=== PATIENT | female | born 1950 | race Caucasian/White ===

== ENCOUNTER → 2021-03-19 15:34 | Outpatient (BNVA) | payer MEDICARE, SELFPAY | PROVIDERS: Family Provider Family Medicine; Visit Provider Podiatrist Foot & Ankle Surgery | DX: M25.571 Pain in right ankle and joints of right foot (principal) | CPT/HCPCS: 73610 ==

== ENCOUNTER → 2022-01-11 08:06 | Outpatient (BNVA) | payer MEDICARE, SELFPAY | PROVIDERS: Family Provider Family Medicine; Visit Provider Orthopaedic Surgery | DX: M17.12 Unilateral primary osteoarthritis, left knee (principal) | CPT/HCPCS: 73560; 73565; 99202 ==

== ENCOUNTER → 2022-02-12 14:33 | Outpatient (BNVA) | payer MEDICARE, SELFPAY | PROVIDERS: Family Provider Family Medicine; Visit Provider Orthopaedic Surgery | DX: M17.12 Unilateral primary osteoarthritis, left knee (principal) | CPT/HCPCS: 99213 ==

== ENCOUNTER 2022-04-05 08:40 | Outpatient (CLI) | payer MEDICARE, OTHER, SELFPAY | END 2022-04-05 08:41 | disposition home or self-care (01) | LOC: RT 04-15 08:23 | PROVIDERS: PCP Family Medicine; Visit Provider Orthopaedic Surgery | DX: Z13.6 Encounter for screening for cardiovascular disorders (principal) | CPT/HCPCS: 93005 ==

== ENCOUNTER 2022-04-05 13:36 | Outpatient (CLI) | payer MEDICARE, OTHER, SELFPAY ==
--- NOTE | 2022-04-05 | CT_ITS ---
WS: [id number] CT LEFT knee, noncontrast HISTORY: PRE-OP MAPPING TECHNIQUE: Protocol for [employer] total knee replacement has been obtained. This includes axial imaging th rough the LEFT hip, LEFT knee and LEFT ankle. DLP: 862.90 mGy.cm COMPARISON: None available. Pelvis: Symmetric bilaterally. No significant joint space narrowing. LEFT knee: Moderate narrowing of the knee joint with osteophytic ridging. Small joint effusion. Lewis 's cyst. LEFT ankle: Negative. CT/CT knee LT [employer] IMPRESSION: CT imaging provided for [employer] robotic total knee replacement.
== END 2022-04-05 13:37 | disposition home or self-care (01) ==
LOC: RAD 13:37
PROVIDERS: PCP Family Medicine; Visit Provider Orthopaedic Surgery
DX: Z01.818 Encounter for other preprocedural examination (principal); M25.462 Effusion, left knee; M71.22 Synovial cyst of popliteal space [Baker], left knee; M25.762 Osteophyte, left knee
CPT/HCPCS: 73700

== ENCOUNTER 2022-04-15 12:35 | Observation (INO) | payer MEDICARE, OTHER, SELFPAY ==
--- NOTE | 2022-04-05 08:40 | ECG_ITS ---
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 Measurements Intervals [place] Rate: 75 P: 47 MI: 189 QRS: 57 QRSD: 92 T: 69 QT: 366 QTc: 410 Interpretive Statements SINUS RHYTHM Compared to ECG 02/12/2018 13:15:37 Myocardial infarct finding no longer present Electronically Signed On 04-05-2022 14:41:49 MOBILE QA TESTER by Aristeo Cash M.D. [email or web address] / [id number]
[2022-04-05 09:15] VITALS: BMI 26.5
[2022-04-05 09:48] LABS: Anion Gap 12.1 (5-19); Blood Urea Nitrogen 12 mg/dL (8-23); Calcium 9.7 mg/dL (8.5-10.5); Carbon Dioxide 29 mmol/L (22-29); Chloride 104 mmol/L (98-107); Creatinine Clr Calc Pharmacy 58.2278; Glomerular Filtration Rate 70.9 mL/min (90-130); Glucose 109 mg/dL (65-115); Osmolality Calculated 292 mOsm/kg (285-295); Potassium 4.1 mmol/L (3.5-5.1); Sodium 141 mmol/L (136-145)
--- NOTE | 2022-04-05 13:24 | ANES.PREANE2 ---
Pre-Anesthetic Assessment Height/Weight: Height 1.57 m Weight 65.771 kg Operation Date: 04/15/22 09:50 Proposed Procedures p Left total knee arthroplasty with homa: 43585 M17.12(Left) - Antwon Sandoval MD Familial anesthetic complications: none Was Beta Mahesh taken within 24 hours: N/A Was Clonidine taken within 24 hours: N/A Social No alcohol and No tobacco Exam alert, oriented x 3, clear to auscultation bilaterally and regular rate & rhythm Airway Submandibular: within normal limits Cervical ROM: within normal limits Mallampati: Class II Dentition: false CV/HEM Hypertension GI Gastroesophageal Reflux Disease Musc/sk Osteoarthritis/DJD Anesthetic Plan ASA status: 2 Anesthesia: Regional (specify below) (SAB with adductor blk) Medications/Allergies Home Medications Medication Instructions Recorded Confirmed Last Taken Type Spectrum AFO ankle brace, right #1 ea 03/19/21 02/12/22 Unknown Rx ankle biotin 1,000 mcg chewable tablet 1,000 mcg PO DAILY 04/05/22 04/05/22 04/05/22 History black cohosh 540 mg capsule 20 mg PO DAILY 04/05/22 04/05/22 04/05/22 History bupropion HCl 150 mg 24 hr tablet, 150 mg PO DAILY 04/05/22 04/05/22 04/05/22 History extended release echinacea 400 mg capsule 400 mg PO DAILY 04/05/22 04/05/22 04/05/22 History enalapril maleate 10 mg tablet 10 mg PO DAILY 04/05/22 04/05/22 04/05/22 History glucosamine sulfate 500 mg tablet 500 mg PO DAILY 04/05/22 04/05/22 04/05/22 History (Glucosamine) hydrochlorothiazide 12.5 mg capsule 12.5 mg PO DAILY 04/05/22 04/05/22 04/05/22 History ibuprofen 400 mg tablet 400 mg PO DAILY 04/05/22 04/05/22 04/05/22 History pantoprazole 20 mg tablet,delayed 40 mg PO DAILY 04/05/22 04/05/22 04/05/22 History release potassium chloride 2.5 mEq tablet meq PO 04/05/22 Unknown History vitamin B complex 1 tab PO DAILY 04/05/22 04/05/22 04/05/22 History vitamin E 670 mg (1,000 unit) 670 mg PO DAILY 04/05/22 04/05/22 04/05/22 History capsule Allergies Allergy/AdvReac Type Severity Reaction Status Date / Time promethazine [From Phenergan] Allergy Unknown Verified 04/05/22 08:51 [facility] Anesthesia Social History Smoking and tobacco status: never smoked Data Anesthesia 04/05/22 09:15 BMP 04/05/22 09:15 Sodium 141 Potassium 4.1 Chloride 104 Carbon Dioxide 29 BUN 12 Creatinine 0.8 Glucose 109 Calcium 9.7 Cardiac Studies: No Data to Display
[2022-04-15] VITALS (16 sets, daily range): BP systolic 92–128; BP diastolic 58–75; PULSE 61–82; RESP 16–22; TEMP 36.3–36.7; O2SAT 92–99
[2022-04-15] MEDS: oxyCODONE 20 mg ER (12 HR) Tablet PO (09:15)
[2022-04-15] MEDS: acetaminophen 500 mg Tablet 1000 MG PO ×2 (09:15→17:18)
[2022-04-15] MEDS: CELEcoxib 200 mg Capsule 400 MG PO (09:15)
[2022-04-15] MEDS: sodium chloride 0.9% 1,000 ML 30 ML IV (09:15)
--- NOTE | 2022-04-15 09:35 | P.ANESUD_ITS ---
Pre-Anesthetic Update Pre-Anesthetic Assessment: Date of Surgery/Procedure: 04/15/22 Preop Joanne gnosis: Osteoarthritis left knee Proposed Procedure: Operation Date: 04/15/22 10:30 Proposed Procedures p Left total knee arthroplasty with homa: 49339 M17.12(Left) - Antwon Sandoval MD Any changes to Pre-Anesthetic Assessment?: No Last Intake: Intake Last Liquid Date 04/14/22 Last Liquid Time 19:00 Last Solid Date 04/14/22 Last Solid Time 19:00 Vitals: Pulse Rhythm 04/15/22 09:07 Pulse Strength 3+ Normal 04/15/22 09:07 Respiratory Rate 16 04/15/22 09:15 Oxygen Delivery Me thod 04/15/22 09:07 Exam: Pre-Anes Outpt Exam: alert, oriented x 3, clear to auscultation bilaterally and regular rate & rhythm Cardiac Studies: No Data to Display
--- NOTE | 2022-04-15 09:35 | W.PM.OPSFHP ---
Same Day Surgery H&P Indication for Procedure/HPI DATE OF PROCEDURE: April 15, 2022 CHIEF COMPLAINT/INDICATIONFOR SURGICAL PROCEDURE: Arthritis left knee here for total knee PREOP DIAGNOSIS: Osteoarthritis left knee PLANNED PROCEDURE: Operation Date: 04/15/22 10:30 Proposed Procedures p Left total knee arthroplasty with homa: 55931 M17.12(Left) - Antwon Sandoval MD 71 year old female patient here for total knee arthroplasty, she is here today for an evaluation of her left knee pain and to discuss knee replacement. Patient states that she has had pain for 7 years, however worse in the last couple of months. She states that on 01/07/22 she had a twisting episode increasing her pain. She states at that time she placed her self in a knee immobilizer to assist with ambulation. She has also used a cane for assistance at times. She as been taking Ibuprofen for pain/discomfort. She has a history of arthroscopic surgery for a meniscal tear by Dr. Horowitz approximately 7 years ago. Medications/Allergies* Home Medications Medication Instructions Recorded Confirmed Type biotin 1,000 mcg chewable tablet 1,000 mcg PO DAILY 04/05/22 04/05/22 History black cohosh 540 mg capsule 20 mg PO DAILY 04/05/22 04/05/22 History bupropion HCl 150 mg 24 hr tablet, 150 mg PO DAILY 04/05/22 04/05/22 History extended release echinacea 400 mg capsule 400 mg PO DAILY 04/05/22 04/05/22 History enalapril maleate 10 mg tablet 10 mg PO DAILY 04/05/22 04/05/22 History glucosamine sulfate 500 mg tablet 500 mg PO DAILY 04/05/22 04/05/22 History (Glucosamine) hydrochlorothiazide 12.5 mg capsule 12.5 mg PO DAILY 04/05/22 04/05/22 History ibuprofen 400 mg tablet 400 mg PO DAILY 04/05/22 04/05/22 History pantoprazole 20 mg tablet,delayed 40 mg PO DAILY 04/05/22 04/05/22 History release potassium chloride 2.5 mEq tablet meq PO 04/05/22 History vitamin B complex 1 tab PO DAILY 04/05/22 04/05/22 History vitamin E 670 mg (1,000 unit) 670 mg PO DAILY 04/05/22 04/05/22 History capsule Allergies/Adverse Reactions Allergy/AdvReac Type Severity Reaction Status Date / Time promethazine [From Phenergan] Allergy Mild Unknown Verified 04/15/22 08:54 Current Medications: Generic Name Dose Route Start Last Admin Trade Name Stevan PRN Reason Stop Dose Admin Sodium Chloride 1,000 mls @ 30 mls/hr 04/15/22 09:00 04/15/22 09:15 Sodium Chloride 0.9% IV 04/16/22 08:59 30 mls/hr .Q24H BEE Administration Pertinent History/Comorbid Conditions* Social History Smoking and tobacco status: never smoked Pertinent Exam Findings alert, oriented x 3, clear to auscultation bilaterally, regular rate & rhythm and operative site marked Ms. Yoder is a healthy appearing elderly female. Examination of the left knee motion is from full extension to 120 degrees She is tender over medial joint line Clear patellofemoral crepitation Cruciate and collateral ligaments are stable Palpable dorsalis pedis MOTOR: Strong quadriceps hamstrings tibialis anterior and extensor houses longus strength SENSATION: Intact to light touch Recommendations Surgery/Procedure today Coding Level of Care Code Acute Code for Becca Vaca
[2022-04-15] MEDS: midazolam 1 mg/mL INJ 2 mL 2 MG IVP (09:42)
[2022-04-15] MEDS: ceFAZolin 2,000 MG in sodium chloride 0.9% (plus) 50 ML 100 MG IV ×2 (10:37→17:24)
[2022-04-15] MEDS: tranexamic acid 1,000 mg/10mL SDV 1000 MG IV (11:11)
[2022-04-15] MEDS: EPINEPHrine 1 mg/mL INJ XX (11:14)
[2022-04-15] MEDS: ketorolac 30 mg/mL INJ XX (11:16)
--- NOTE | 2022-04-15 12:32 | XR_ITS ---
WS: [id number] KNEE LEFT TECHNIQUE: 2 views of the left knee CLINICAL INFORMATION: Left Total knee arthroplasty COMPARISON: None. FINDINGS: Postoperative changes LEFT TKA. Hardware appears in good position. Soft tissue edema with soft tissue emphysema compatible with recent postoperative change. IMPRESSION: Normal for postoperative purposes.
--- NOTE | 2022-04-15 12:32 | PM.OP ---
Operative Report Date of procedure: April 15, 2022 Pre-op diagnosis: Preop Diagnosis Osteoarthritis left knee Post-op diagnosis: same Post-op diagnosis: Same Post-op findings: Same Procedure done: Left total knee arthroplasty Implants: Mart Triathalon total knee arthroplasty components were used includin) Size 3 triathalon cruciate retaining femoral component 2) Size 4 Tritanium tibial component 3) Size 4/9 mm thickness CS tibial bearing insert Pathology: none sent Surgeon: Antwon Sandoval Cryptologic Supervisor: Pedro Clinton Cryptologic Supervisor: The nurse practitioner the nurse practitioner assisted with critical portions of the case including positioning, draping, exposure, component implantation, closure and dressing application and is present through the entirety of the case. Anesthesia: Nerve Block (Spinal, adductor canal block) Estimated blood loss (mL): 250 Findings: The patient eburnated bone over the medial femoral condyle and medial tibial plateau. There was thinning of the patellar cartilage and no exposed subchondral bone. Patella tracked well with the trochlear component Condition: stable Disposition: PACU Procedure: The patient was taken to the operating room. Patient was given 1 g of tranexamic acid and 2 g of Ancef. The above anesthesia provided by the anesthesia service. A timeout was performed. The patient was prepped and draped in the usual fashion with the lower extremity exposed. A anterior incision was made, midline, from a point proximal to the patella to the distal tibial tubercle. The knee was entered through a medial parapatellar approach. The patella could be displaced laterally and the knee flexed. The patellar fat pad was resected to provide better visibility. Retractors were placed medially and laterally adjacent to the tibial plateau. At a point approximately 8 cm above the patella, 2 small incisions were made with a scalpel blade and 2 long threaded pins were placed into the anterior medial femur engaging both cortices. The femoral arrays were placed over these pins and secured. At a point 8 cm distal to the tibial tubercle. 2 shorter bicortical threaded pins were placed across the anterior medial tibia and the tibial arrays placed. A checkpoint was made just proximal and medial to the medial femoral condyle and just medial to the tibial plateau. Small osteotomes were placed in the joint in both flexion and extension to determine ligamentous laxity. The femoral component was externally rotated 3 degrees to accommodate decreased flexion gap medially.. The One Season robot was then introduced to the field and the femur and tibia cut in accordance with our plan. he [employer] Fastseal was then used to provide hemostasis, particularly about the posterior capsule. A trial with the above components provided excellent stability and full range of motion. The femur was then prepared for the femoral pegs of the component in the tibia for the tibial component. The femur and tibia were then press-fit into place. An osteotome was used to remove the lateral 8 mm of the patella to minimize chances of later impingement. A neurectomy was accomplished circumferentially about the patella with electrocautery and lateral osteophytes removed. Surfaces were cleaned with a gentamicin solution. The femur and tibia were then press-fit into place. The posterior capsule and collateral ligaments were then injected with a solution of 100 mL of 0.2% ropivacaine, 1 mL of a 1:1000 epinephrine solution, 30 mg of Toradol, and 1 g of tranexamic acid. Final polyethylene component was then snapped into place into the tibia. The extensor retinaculum was closed with a running 1 Stratafix interrupted 1 Ethibond. The subcutaneous tissues were closed with 2-0 Vicryl and the skin was closed with a running 4-0 Stratafix. The wound was covered with a Dermabond Prineo dressing. It was covered with 4xrs and a compressive Tubigauze was applied. The patient was taken to recovery room in stable condition.
--- NOTE | 2022-04-15 12:47 | ANES.PROC ---
Anesthesia Procedures Procedure/Date: 04/15/22 Nerve Block ^: Nerve Block 1: Main Anesthesia: spinal anesthesia block Time Out Performed: Yes Consent: requested by attending/covering physician, from patient, risks and benefits reviewed and patient agrees to proceed Nerve block location: adductor canal (left) Anesthesia monitors applied: pulse oximetry, EKG, BP cuff and oxygen Nerve block position: supine Anesthetic Used: ropivicaine 0.5% Amount of anesthesia used (mL): 20 Ultrasound used to: recognize landmarks Nerve Stimulator Used?: No Interscalene/Femoral BLK: 4 stimuplex 21 g needle used for position and inplane approach Injection: neg aspiration of heme Patient Tolerated Procedure: well Complications: none
--- NOTE | 2022-04-15 16:11 | ANE.PACU2 ---
Inpatient post-anesthesia follow up: Airway intact: Yes Vital signs: Temperature 97.4 F Pulse Rate 72 Respiratory Rate 16 Blood Pressure 109/59 Pulse Oximetry 96 Oxygen Delivery Me thod Room Air Oxygen Flow Rate 6 Fraction of Inspir ed Oxygen Hydration adequate: Yes Nausea and vomiting: No Pain level: 2 Mental status: Baseline
[2022-04-15] MEDS: sennosides-docusate Tablet 2 TAB PO (17:17)
[2022-04-15] MEDS: oxyCODONE 5 mg IR Tab/Cap PO (17:19)
[2022-04-15] MEDS: sodium chloride 0.9% 1,000 ML 100 ML IV (17:19)
[2022-04-15] MEDS: ondansetron 2 mg/ML SDV 2 mL 4 MG IVP (17:20)
[2022-04-15] MEDS: CELEcoxib 200 mg Capsule PO (20:47)
[2022-04-16] VITALS (9 sets, daily range): BP systolic 110–145; BP diastolic 69–79; PULSE 70–89; RESP 15–20; TEMP 36.4–36.7; O2SAT 95–98
[2022-04-16] MEDS: acetaminophen 500 mg Tablet 1000 MG PO ×2 (01:13→08:24)
[2022-04-16] MEDS: sodium chloride 0.9% 1,000 ML 100 ML IV (01:15)
[2022-04-16] MEDS: oxyCODONE 5 mg IR Tab/Cap PO ×3 (02:50→12:37)
[2022-04-16 05:23] LABS: Hemoglobin 10.6 g/dL (11.5-15.3)
[2022-04-16] MEDS: hydroCHLOROthiazide 25 mg Tablet 12.5 MG PO (08:22)
[2022-04-16] MEDS: CELEcoxib 200 mg Capsule PO (08:23)
[2022-04-16] MEDS: aspirin 325 mg EC Tablet PO (08:23)
[2022-04-16] MEDS: lisinopril 20 mg Tablet PO (08:24)
[2022-04-16] MEDS: sennosides-docusate Tablet 2 TAB PO (08:24)
[2022-04-16] MEDS: pantoprazole DR 40 mg Tablet PO (08:24)
[2022-04-16] MEDS: buPROPion XL (24 HR) 150 mg Tablet PO (08:36)
[2022-04-16] MEDS: ceFAZolin 2,000 MG in sodium chloride 0.9% (plus) 50 ML 100 MG IV (08:58)
[2022-04-16] MEDS: ondansetron 2 mg/ML SDV 2 mL 4 MG IVP (10:17)
--- NOTE | 2022-04-16 10:36 | PC.CHAP ---
Pastoral Care Encounter/Spiritual Assessment Type of Contact [] Declined commercial real estate associate visit [] Patient/Family/Request visit [] Outpatient visit [] Follow-up visit [] Physician referral [] Code/Alert [x] Routine visit [] Staff referral [] Actively dying [] Patient sleeping [x] Family support [] [] Out of room [] Palliative care [] [] Receiving care in room [] Pre-surgical visit [] Trauma [] Long length of stay [] ICU visit [] Other: Relational/Emotional Strength [x] Patient feels connected with others/family/visitors/staff [] Distress [] Loneliness/isolation [] Abandonment Spirituality of Patient [x] Person of Lacey [] Attends Catholic of their [place] [x] Believes in Prayer [] Reads Bible or Religion materials [] There are Spiritual issues to be addressed 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 Interventions [x] Prayer [x] Active listening [x] Non-anxious presence [] Spiritual/emotional support [] Crisis/trauma care [] Spiritual counseling [] Bereavement support [] Provided bereavement packet [] Provided Bible/devotional materials [] Provided toy/stuffed animal, coloring book to patient or family member [] Provided Communion [] Anointing/[place] [] Salvation [x] Completed spiritual assessment [] Other: Impact on Illness or Injury [] Angry [] Fearful [] Anxious [] Often cries [] Exhaustion [] Unable to work [] Unable to attend yazidi [] Unable to walk/stand [] Unable to read [] Unable to drive [] Unable to eat/drink [] Unable to sleep [] Unable to be with family [] Patient intubated [] Other: Summary Time spent with patient 10 min
--- NOTE | 2022-04-17 08:13 | P.DS_ITS ---
Discharge Providers Date of Admission: 04/15/22 12:35 Date of Discharge: March Attending Provider at Admission: Antwon Sandoval MD Attending Provider at Discharge: Antwon Sandoval MD Primary Care Provider: Xavier Goldstein MD Diagnoses at Discharge Discharge Diagnosis (1) Status post left knee replacement: Status: Acute (2) Osteoarthritis of left knee: Status: Resolved Reason for Visit Reason for Visit: M17.12 Brief History: See admission history and physical Hospital Course Hospital Course The patient tolerated surgery well. They remained hemodynamically stable. They was begun on aspirin and parenteral compression dressing for DVT prophylaxis. The patient was mobilized with therapy beginning the day of surgery and by the first postoperative day independent with the walker. As the pain was adequately controlled and they were fully mobile they were discharged home. Physical Exam Narrative: On the day of discharge the knee incision was clean. They had no drainage. There is minimal swelling in the thigh and knee and the calf. No distal neurovascular deficits were noted Discharge Data Studies Completed and Pending Completed Studies During Hospitalization Category Date Time Status XR knee LT 1-2V 46940 Routine Exams 04/15/22 12:32 Completed Laboratory Results Hgb 10.6 g/dL (11.5-15.3) L 04/16/22 04:32 Sodium 141 mmol/L (136-145) 04/05/22 09:15 Potassium 4.1 mmol/L (3.5-5.1) 04/05/22 09:15 Chloride 104 mmol/L (98-107) 04/05/22 09:15 Carbon Dioxide 29 mmol/L (22-29) 04/05/22 09:15 Anion Gap 12.1 (5-19) 04/05/22 09:15 BUN 12 mg/dL (8-23) 04/05/22 09:15 Creatinine 0.8 mg/dL (0.5-0.9) 04/05/22 09:15 GFR Calculation 70.9 mL/min (90-130) L 04/05/22 09:15 Glucose 109 mg/dL (65-115) 04/05/22 09:15 Calculated Osmolality 292 mOsm/kg (285-295) 04/05/22 09:15 Calcium 9.7 mg/dL (8.5-10.5) 04/05/22 09:15 Vitals Last Vital Signs Temp 98.0 F 04/16/22 15:23 Pulse 89 04/16/22 15:23 Resp 16 04/16/22 15:23 BP 145/79 04/16/22 15:23 Pulse Ox 98 04/16/22 15:23 O2 Del Method 04/16/22 11:37 O2 Flow Rate 6 04/15/22 12:55 Discharge Plan Discharge Patient Disposition: Home Condition: Stable Prescriptions: New celecoxib 200 mg Capsule 200 mg PO Q12H 14 Days Qty: 28 0RF acetaminophen 500 mg Tablet 1,000 mg PO Q8H 14 Days Qty: 84 0RF aspirin 325 mg Tablet,Delayed Release (Dr/Ec) 325 mg PO DAILY 30 Days Qty: 30 0RF oxycodone 5 mg Tablet 5 mg PO Q4H PRN (Reason: Moderate Pain) 7 Days Qty: 40 0RF ondansetron HCl 4 mg tablet 4 mg PO Q8H PRN (Reason: nausea and vomiting) 7 Days Qty: 15 0RF Continued (DME) Spectrum AFO ankle brace, right ankle See Rx Instructions .Route .MEDSUPPLY Qty: 1 0RF Rx Instructions: As directed vitamin E 670 mg (1,000 unit) Capsule 670 mg PO DAILY vitamin B complex Tablet Extended Release 1 tab PO DAILY enalapril maleate 10 mg tablet 10 mg PO DAILY echinacea 400 mg Capsule 400 mg PO DAILY Rx Instructions: administer with meals black cohosh 540 mg Capsule 20 mg PO DAILY glucosamine sulfate [Glucosamine] 500 mg Tablet 500 mg PO DAILY Rx Instructions: administer with a meal pantoprazole 20 mg Tablet,Delayed Release (Dr/Ec) 40 mg PO DAILY hydrochlorothiazide 12.5 mg Capsule 12.5 mg PO DAILY bupropion HCl 150 mg tablet extended release 24 hr 150 mg PO DAILY biotin 1,000 mcg Tablet,Chewable 1,000 mcg PO DAILY potassium chloride 2.5 mEq Tablet PO Held ibuprofen 400 mg Tablet 400 mg PO DAILY Hold Instructions: Resume on 04/30/22. Do not take ibuprofen with other anti- inflammatories Discharge Orders: Discharge Order (Routine); Ordered 04/16/22 Ordered By: Antwon Sandoval Referrals: Pedro Clinton FNP [Physician [facility]] - 04/19/22 9:30 am Discharge Diet: Advance as tolerated Discharge Activity: Limit activity as instructed Patient Instructions: Ondansetron (By mouth), Celecoxib (By mouth), Oxycodone, Slow Release (By mouth), Knee Replacement (DC), Opioid Safety Activity Restrictions/Additional Instructions: Exercises per physical therapy Take tylenol, and celebrex scheduled as instructed Take oxycodone for pain no relieved with above meds Leave dressing in place OK to shower 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 Sandoval if any problems after clinic hours Discharge Attestations Time Spent in Discharge Care*: other Quality Metrics Clinical Quality Measures [ No reported AMI, CVA or VTE this stay] Coding Level of Care Code Acute Chg FW DC note Diagnoses Status post left knee replacement Z96.652 Osteoarthritis of left knee M17.12
== END 2022-04-16 15:24 | disposition home health service (06) ==
LOC: MEDSURG 12:35
PROVIDERS: Anesthesiology; Admitting Provider Orthopaedic Surgery; PCP Family Medicine; Visit Provider Orthopaedic Surgery
PROC: 8E0Y0CZ Robotic Assisted Procedure of Lower Extremity, Open Approach (ICD-10-PCS; CPT 27447; principal; 2022-04-15 10:10)
DX: M17.12 Unilateral primary osteoarthritis, left knee (principal); I10 Essential (primary) hypertension
CPT/HCPCS: 27447; 36415; 73560; 80048; 85018; 96374; 96376; 97110; 97116; 97161; 97165; 97530; C1776; G0378; J0171; J0690; J1580; J1885; J2250; J2405; J2704; J2795; J3010; J7030

== ENCOUNTER → 2022-04-19 09:30 | Outpatient (BNVA) | payer MEDICARE, OTHER, SELFPAY | PROVIDERS: PCP Family Medicine; Visit Provider Nurse Practitioner Family | DX: Z96.652 Presence of left artificial knee joint (principal) | CPT/HCPCS: 99024 ==

== ENCOUNTER → 2022-05-17 08:07 | Outpatient (BNVA) | payer MEDICARE, OTHER, SELFPAY | PROVIDERS: Visit Provider Nurse Practitioner Family | DX: Z47.89 Encounter for other orthopedic aftercare (principal); Z96.652 Presence of left artificial knee joint | CPT/HCPCS: 73560; 73565; 99024; 99213 ==

== ENCOUNTER 2022-05-22 06:00 | Outpatient (RCR) | payer MEDICARE, OTHER, SELFPAY | END 2022-06-14 12:54 | disposition home or self-care (01) | LOC: SPT 06:00 | PROVIDERS: Visit Provider Orthopaedic Surgery | DX: Z96.652 Presence of left artificial knee joint (principal) | CPT/HCPCS: 97110; 97161; 97530 ==

== ENCOUNTER → 2022-07-24 09:38 | Outpatient (BNVA) | payer MEDICARE, OTHER, SELFPAY | PROVIDERS: Visit Provider Podiatrist Foot & Ankle Surgery | DX: M25.571 Pain in right ankle and joints of right foot (principal); G89.29 Other chronic pain; M25.572 Pain in left ankle and joints of left foot; M19.171 Post-traumatic osteoarthritis, right ankle and foot | CPT/HCPCS: 73610; 99214 ==

== ENCOUNTER → 2022-08-23 08:18 | Outpatient (BNVA) | payer MEDICARE, OTHER, SELFPAY | PROVIDERS: Visit Provider Nurse Practitioner Family | DX: Z96.652 Presence of left artificial knee joint (principal) | CPT/HCPCS: 73560; 73565; 99213 ==

== ENCOUNTER → 2024-01-28 08:35 | Outpatient (BNVA) | payer MEDICARE, OTHER, SELFPAY | PROVIDERS: Visit Provider Podiatrist Foot & Ankle Surgery | DX: M19.171 Post-traumatic osteoarthritis, right ankle and foot; M25.571 Pain in right ankle and joints of right foot; G89.29 Other chronic pain | CPT/HCPCS: 73630; 99213 ==

== ENCOUNTER → 2025-01-11 09:47 | Outpatient (BNVA) | payer MEDICARE, OTHER, SELFPAY | PROVIDERS: PCP Family Medicine; Visit Provider Podiatrist Foot & Ankle Surgery | DX: M79.672 Pain in left foot (principal); M72.2 Plantar fascial fibromatosis | CPT/HCPCS: 73630; 99213 ==